=== PATIENT | male | born 1995 | race Caucasian/White ===

== ENCOUNTER 2024-04-30 19:10 | Emergency (ER) | payer OTHER ==
--- NOTE | 2024-04-30 20:06 | ED Physician Documentation ---
PD HPI SKIN - Stated complaint Stated Complaint: R FINGER LAC - Chief complaint Chief Complaint: Laceration - Additional information Additional information: 29-year-old male up-to-date with tetanus shot presents emergency department for laceration to the volar aspect of his right index finger. Patient says that he was cutting a piece of wood this pocket knife lost control the pocket knife and cut the top of his finger. Able to flex and extend his finger without any difficulty bleeding is well-controlled. This happened just prior to arrival to the emergency department. PD PAST MEDICAL HISTORY - Past Medical History Past Medical History: No - Past Surgical History Past Surgical History: Yes Ortho: Other - Present Medications Home Medications: Ambulatory Orders Medication Instructions Recorded Confirmed No Known Home Medications 04/30/24 04/30/24 - Allergies Allergies/Adverse Reactions: Allergies Allergy/AdvReac Type Severity Reaction Status Date / Time No Known Drug Allergies Allergy Verified 04/30/24 19:25 - Social History Does the pt smoke?: No Smoking Status: Never smoker Does the pt drink ETOH?: Yes Does the pt have substance abuse?: No - Immunizations Immunizations are current?: Yes PD ED PE NORMAL - Vitals Vital signs reviewed: Yes - General General: Alert and oriented X 3, Well developed/nourished - Derm Derm: Other (2 cm laceration to the volar aspect of his right index finger) Results - Vitals Vitals: Vital Signs - 24 hr 04/30/24 04/30/24 19:22 21:02 Temperature 36.5 C Heart Rate 74 66 Respiratory 15 16 Rate Blood Pressure 130/88 H 137/89 H O2 Saturation 97 98 Oxygen O2 Source Room air Procedures - Laceration (location) Right index finger volar aspect Length in cm: 2 (Laceration to the volar aspect in between MIP and DIP not involving joint or fingernail.) Wound type: Linear, Superficial, Into subcut fat, Clean Neurovascular status: Sensory intact, Motor intact, Vascular intact Anesthesia: Marcaine 0.25% Wound preparation: Irrigated copiously NS Skin layer closure: Dermabond, Steri strips Other: Patient tolerated well, No complications, Neurovascular intact, Tetanus UTD, Other (Finger splint applied) PD Medical Decision Making - ED course ED course: 29-year-old male presents emergency department for laceration to the left index finger volar aspect between the MIP and DIP not involving the nail. Wound was explored to the base and there is no foreign bodies visualized no tendon visualized no bone visualized. Patient able to flex and extend without any difficulty. Bleeding is well-controlled I applied some Dermabond and 3 Steri- Strips patient was taught signs symptoms of infection to watch out for a finger splint was applied on the finger just overnight to keep the finger straight and patient was told to remove it tomorrow and start using the hand return pre cautions given patient told to follow-up with primary care provider as needed outpatient all questions answered safe for discharge. Departure - Departure Disposition: 01 Home, Self Care Instructions: ED Laceration All Comments: Thank you for trusting us with your care we have repaired the laceration on the top of your right index finger with glue and Steri-Strips. It is okay to get this wet although the more dry you can keep it tomorrow will protect the integrity of the Steri-Strips and the glue. Please watch out for signs and symptoms of infection which include redness, swelling, drainage that appears to be yellow or white underneath the glue. Please come back and if you are having any worsening symptoms or any fevers or chills. Wishing you a speedy recovery. Forms: PCP List Discharge Date/Time: 04/30/24 21:04
[2024-04-30 21:04] VITALS: BP 137/89; O2SAT 98
== END 2024-04-30 21:04 | disposition home or self-care (01) ==
LOC: ED 19:10
DX: S61.210A Laceration without foreign body of right index finger without damage to nail, initial encounter (principal); W26.0XXA Contact with knife, initial encounter
CPT/HCPCS: 12001; 99281